=== PATIENT | female | born 1930 | race Caucasian/White ===

== ENCOUNTER 2016-04-10 14:25 | Emergency (ER) | payer OTHER ==
[~2016-04-10] VITALS: Ht 167.6 cm; Wt 75.6 kg
[~2016-04-10 14:25] MED LIST: ACTIGALL300 MG PO; AMLODIPINE BESY10 MG PO; AMLODIPINE BESYL5 MG PO; APRESOLINE50 MG PO; ASPIR-LOW81 MG PO; ATENOLOL25 M1 PO; AUGMENTIN875 MG PO; B COMPLETE1 EACH PO; B COMPLEX #11 EACH PO; CALCIUM + D 601 EACH PO; DIOVAN160 MG PO; FISH OIL 1,0001 EA10 PO; FISH OIL CONC1 EACH PO; FISH OIL CONC1000 MG PO; HYDRALAZINE HCL50 MG PO; LEVOTHYROXINE112 MCG PO; LEVOTHYROXINE75 MCG PO; LIDOCAINE-PRIL1 EACH TP; LIPITOR10 MG PO; LIPITOR20 MG PO; LIPITOR40 MG PO; LOPRESSOR25 MG PO; LOPRESSOR50 MG PO; METOPROLOL TART50 MG PO; NIFEDIPINE XL30 MG PO; NORCO 5/3251 TABLET PO; OMEGA III EPA1000 MG PO; OMEGA-31000 M1 PO; PAIN & FEVER325 MG PO; PEN-VEE K,VEET500 MG PO; PERCOCET 5/31 TABLET PO; PROTEIN POWDER454 G1 PO; RENVELA800 MG PO; SIMVASTATIN40 M1 PO; SYNTHROID100 MCG PO; SYNTHROID112 MCG PO; SYNTHROID125 MCG PO; TOPROL XL50 MG PO; VITAMIN B CO1 TABLET PO; Vancocin Oral Solution PO; Z BEC PO; Z-BEC PO; [UNRECOGNIZED DRUG - CODE] PO
[2016-04-10] MEDS ORDERED: PERCOCET 5/31 TABLET PO (18:31)
[2016-04-10 18:49] VITALS: BP 198/54
== END 2016-04-10 18:50 | disposition home or self-care (01) ==
LOC: EME 14:25 → RME 14:25
DX: M25.461 Effusion, right knee (principal); M25.462 Effusion, left knee; M25.561 Pain in right knee; M25.562 Pain in left knee; N18.9 Chronic kidney disease, unspecified; E11.9 Type 2 diabetes mellitus without complications; E03.9 Hypothyroidism, unspecified; Z99.2 Dependence on renal dialysis; Z86.000 Personal history of in-situ neoplasm of breast
CPT/HCPCS: 73564; 99281; 99284

== ENCOUNTER 2017-03-22 07:58 | Day surgery (SDC) | payer OTHER ==
[~2017-03-22] VITALS: Ht 167.6 cm; Wt 67.1 kg
[~2017-03-22 07:58] MED LIST changes: +ACETAMINOPHEN650 M4 PR; +APRESOLINE100 MG PO; +CATAPRES-TTS 21 EACH TD; +CATAPRES0.1 MG PO; +DULCOLAX10 MG PR; +ENULOSE10 GM/15 M PO; +GERI-TUSSI100 MG/5 M PO; +NORVASC5 MG PO; +OMEPRAZOLE40 M1 PO; +PROMETHAZINE12.5 M1 PO; -SYNTHROID112 MCG PO; -TOPROL XL50 MG PO; +TYLENOL REGULA325 MG PO; +ZOFRAN4 MG PO
[2017-03-22 08:24] VITALS: BP 160/70
[2017-03-22 08:31] LABS: HEMATOCRIT 36.8 % (36.0-46.0); MCH 32.2 PG (29.0-34.0); MCHC 31.8 G/DL (30.0-36.0); MCV 101.4 FL (83-99); MEAN PLAT.VOLUME 10.8 uM^3 (9.5-12.4); PLATELET COUNT 136 K/uL (156-360); RBC DIS.WIDTH-CV 15.6 % (11.8-14.6); RBC DIS.WIDTH-SD 57.4 % (39-53); RED BLOOD COUNT 3.63 M/uL (3.80-5.20)
[2017-03-22 08:57] LABS: ANION GAP 9 MEQ/L (2-14); CHLORIDE 99 MEQ/L (99-109); SAMPLE HEMOLYSIS CHECK 0; SAMPLE ICTERIC CHECK 0; SAMPLE LIPEMIA CHECK 0; SODIUM 139 MEQ/L (136-147)
[2017-03-22 09:02] LABS: GFR ESTIMATE (CALCULATED) 7 mL/min/; GLUCOSE 83 mg/dL (70-99); UREA NITROGEN (BUN) 18 mg/dL (9-23)
[2017-03-22 09:55] LABS: METH RESISTANT S AUREUS PCR NEGATIVE (NEGATIVE)
[2017-03-22 10:06] LABS: PROBE CHECK PASS; SPECIMEN PROCESSING CONTROL PASS
[2017-03-22 11:50] VITALS: BP 197/82
[2017-03-22 12:50] VITALS: BP 202/87
== END 2017-03-22 13:12 ==
LOC: SDC 07:58
PROVIDERS: Surgery
DX: T82.858A Stenosis of other vascular prosthetic devices, implants and grafts, initial encounter (principal); I12.0 Hypertensive chronic kidney disease with stage 5 chronic kidney disease or end stage renal disease; E11.22 Type 2 diabetes mellitus with diabetic chronic kidney disease; N18.6 End stage renal disease; Z99.2 Dependence on renal dialysis; E03.9 Hypothyroidism, unspecified; E78.00 Pure hypercholesterolemia, unspecified; M19.90 Unspecified osteoarthritis, unspecified site; K21.9 Gastro-esophageal reflux disease without esophagitis; L40.9 Psoriasis, unspecified; Z86.19 Personal history of other infectious and parasitic diseases; Z85.3 Personal history of malignant neoplasm of breast; D63.1 Anemia in chronic kidney disease; Z82.49 Family history of ischemic heart disease and other diseases of the circulatory system; Z88.8 Allergy status to other drugs, medicaments and biological substances
CPT/HCPCS: 80048; 85027; 87641; 93005; C1725; C1769; C1894; J0690; J1644; J3010

== ENCOUNTER 2017-08-21 07:38 | Day surgery (SDC) | payer OTHER ==
[~2017-08-21] VITALS: Ht 170.2 cm; Wt 58.0 kg
[~2017-08-21 07:38] MED LIST changes: -APRESOLINE100 MG PO; +APRESOLINE25 MG PO; +COUGH SYRU100 MG/5 M PO; +DOLOTRANZ 2.5%1 EACH TP; +LACTULOSE10 GM/151 PO; +MIRALAX17 GM PO; +NIZORAL SHAMPO120 ML TP; +NORVASC10 MG PO; -NORVASC5 MG PO; +SENNA-DOCUSATE1 EAC1 PO; +SYNTHROID150 MCG PO; +TYLENOL650 MG PR
[2017-08-21 08:20] LABS: HEMATOCRIT 38.4 % (36.0-46.0); HEMOGLOBIN 12.2 G/DL (11.9-15.5); MCH 31.8 PG (29.0-34.0); MCHC 31.8 G/DL (30.0-36.0); PLATELET COUNT 104 K/uL (156-360); RBC DIS.WIDTH-CV 15.6 % (11.8-14.6); RBC DIS.WIDTH-SD 56.3 % (39-53); RED BLOOD COUNT 3.84 M/uL (3.80-5.20); WHITE BLOOD COUNT 4.2 K/uL (4.1-10.2)
[2017-08-21 08:26] VITALS: BP 176/75
[2017-08-21 08:45] LABS: CHLORIDE 98 MEQ/L (99-109); CREATININE 4.6 MG/DL (0.6-1.3); GFR ESTIMATE (CALCULATED) 10 mL/min/; GLUCOSE 79 mg/dL (70-99); POTASSIUM 4.4 MEQ/L (3.7-5.4); SODIUM 137 MEQ/L (136-147); UREA NITROGEN (BUN) 23 mg/dL (9-23)
[2017-08-21 14:34] VITALS: BP 141/60
[2017-08-21 15:15] VITALS: BP 170/78
== END 2017-08-21 15:30 | disposition home or self-care (01) ==
LOC: SDC 07:38
PROVIDERS: Surgery
PROC: 05HY33Z Insertion of Infusion Device into Upper Vein, Percutaneous Approach (ICD-10-PCS; principal; 2017-08-21)
PROC: B51W1ZZ Fluoroscopy of Dialysis Shunt/Fistula using Low Osmolar Contrast (ICD-10-PCS; principal; 2017-08-21)
PROC: 057Y3DZ Dilation of Upper Vein with Intraluminal Device, Percutaneous Approach (ICD-10-PCS; principal; 2017-08-21)
DX: T82.858A Stenosis of other vascular prosthetic devices, implants and grafts, initial encounter (principal); Y83.2 Surgical operation with anastomosis, bypass or graft as the cause of abnormal reaction of the patient, or of later complication, without mention of misadventure at the time of the procedure; I12.0 Hypertensive chronic kidney disease with stage 5 chronic kidney disease or end stage renal disease; E11.22 Type 2 diabetes mellitus with diabetic chronic kidney disease; N18.6 End stage renal disease; Z99.2 Dependence on renal dialysis; D63.8 Anemia in other chronic diseases classified elsewhere; E78.4 Other hyperlipidemia; K21.0 Gastro-esophageal reflux disease with esophagitis; E03.9 Hypothyroidism, unspecified
CPT/HCPCS: 80048; 82948; 85027; 87641; 93005; C1725; C1769; C1874; C1894; J0360; J0690; J1644

== ENCOUNTER 2017-11-01 13:11 | Day surgery (SDC) | payer OTHER ==
[~2017-11-01] VITALS: Ht 170.2 cm; Wt 63.0 kg
[~2017-11-01 13:11] MED LIST changes: +APRESOLINE100 MG PO; -APRESOLINE25 MG PO; +CALPHRON667 MG PO; +MICONAZOLE NITR30 GM TP
[2017-11-01 13:47] LABS: HEMOGLOBIN 11.8 G/DL (11.9-15.5); MCH 32.7 PG (29.0-34.0); MCHC 33.7 G/DL (30.0-36.0); PLATELET COUNT 134 K/uL (156-360); RBC DIS.WIDTH-CV 14.9 % (11.8-14.6); RBC DIS.WIDTH-SD 53.4 % (39-53); RED BLOOD COUNT 3.61 M/uL (3.80-5.20)
[2017-11-01 14:02] VITALS: BP 200/81
[2017-11-01 14:50] LABS: CHLORIDE 96 MEQ/L (99-109); POTASSIUM 4.6 MEQ/L (3.7-5.4); SODIUM 136 MEQ/L (136-147)
[2017-11-01 14:55] LABS: CREATININE 4.5 MG/DL (0.6-1.3); GFR ESTIMATE (CALCULATED) 10 mL/min/; GLUCOSE 74 mg/dL (70-99); UREA NITROGEN (BUN) 36 mg/dL (9-23)
[2017-11-01 18:50] VITALS: BP 217/87
[2017-11-01 20:08] VITALS: BP 193/100
== END 2017-11-01 20:25 ==
LOC: SDC 13:11
PROVIDERS: Surgery
DX: T82.858A Stenosis of other vascular prosthetic devices, implants and grafts, initial encounter (principal); I12.9 Hypertensive chronic kidney disease with stage 1 through stage 4 chronic kidney disease, or unspecified chronic kidney disease; E11.22 Type 2 diabetes mellitus with diabetic chronic kidney disease; N18.6 End stage renal disease; Z99.2 Dependence on renal dialysis; D63.1 Anemia in chronic kidney disease; Z91.013 Allergy to seafood; Z85.3 Personal history of malignant neoplasm of breast; E03.9 Hypothyroidism, unspecified; Z86.19 Personal history of other infectious and parasitic diseases; E78.5 Hyperlipidemia, unspecified; M19.90 Unspecified osteoarthritis, unspecified site; K21.9 Gastro-esophageal reflux disease without esophagitis; F41.1 Generalized anxiety disorder; L40.9 Psoriasis, unspecified; Z82.49 Family history of ischemic heart disease and other diseases of the circulatory system
CPT/HCPCS: 80048; 85027; 87641; C1725; C1769; C1894; J0690; J1200; J1644; J1720; J3010